=== PATIENT | female | born 1980 | race Caucasian/White ===

== ENCOUNTER 2017-04-27 18:22 | Emergency (ER) | payer OTHER ==
[2017-04-27 22:08] VITALS: BP 125/80
== END 2017-04-27 22:08 | disposition home or self-care (01) ==
LOC: ED 18:22
DX: S39.012A Strain of muscle, fascia and tendon of lower back, initial encounter (principal); V49.9XXA Car occupant (driver) (passenger) injured in unspecified traffic accident, initial encounter; Y93.89 Activity, other specified; Y92.89 Other specified places as the place of occurrence of the external cause; Y99.8 Other external cause status; E66.9 Obesity, unspecified

== ENCOUNTER 2018-09-01 04:28 | Emergency (ER) | payer OTHER ==
[~2018-09-01] VITALS: Ht 152.4 cm; Wt 88.5 kg
[2018-09-01 04:41] VITALS: Ht 152.4 cm; Wt 88.5 kg
[2018-09-01 05:23] LABS: BASOPHIL % 0.3 % (0-2); PLATELET COUNT 375 x10^3mcL (130-400); RED CELL DISTRIBUTION WIDTH 13.6 % (11.5-14.5)
[2018-09-01 05:32] LABS: CALCIUM 8.9 mg/dL (8.5-10.1); CARBON DIOXIDE 26.5 mmol/L (21-32); CREATININE SERUM 1.9 mg/dL (0.6-1.0); POTASSIUM SERUM 4.2 mmol/L (3.5-5.1)
[2018-09-01 05:38] LABS: BILIRUBIN TOTAL 0.37 mg/dL (0.20-1.00)
[2018-09-01 05:40] LABS: ALBUMIN 3.2 g/dL (3.4-5.0); TOTAL PROTEIN, SERUM 8.9 g/dL (6.4-8.2)
[2018-09-01 06:35] VITALS: BP 134/81
== END 2018-09-01 06:35 | disposition home or self-care (01) ==
LOC: ED 04:28
PROVIDERS: Emergency Medicine
DX: T14.8XXA Other injury of unspecified body region, initial encounter (principal); R11.2 Nausea with vomiting, unspecified; R53.1 Weakness; W54.0XXA Bitten by dog, initial encounter; Y93.89 Activity, other specified; Y92.89 Other specified places as the place of occurrence of the external cause; Y99.8 Other external cause status
CPT/HCPCS: J2405; J7030

== ENCOUNTER 2019-11-09 21:41 | Emergency (ER) | payer OTHER ==
[~2019-11-09] VITALS: Ht 152.4 cm; Wt 90.9 kg
[2019-11-09 21:50] VITALS: Ht 152.4 cm; Wt 90.9 kg
[2019-11-10 00:41] VITALS: BP 140/93
== END 2019-11-10 00:42 | disposition home or self-care (01) ==
LOC: ED 21:41
DX: J02.9 Acute pharyngitis, unspecified (principal)
CPT/HCPCS: 86308; J1100; J1885